=== PATIENT | female | born 1975 | race Caucasian/White ===

== ENCOUNTER 2019-04-05 08:03 | Day surgery (SDC) | payer OTHER ==
[2019-04-04 12:40] LABS: Absolute Lymphocytes (CBC) 2.5 K/uL (0.7-4.9); Basophils % 0.7 % (0-1.3); Hematocrit 41.8 % (36.0-45.0); Lymphocytes % 32.4 % (15.3-44.8); MPV 7.5 fL (7.6-11.3); Protein, Total 7.3 g/dL (6.4-8.2); RBC Red Blood Cell Count 4.71 M/uL (3.86-4.86)
--- NOTE | 2019-04-04 13:17 | EKG ---
Test Date: 2019-04-04 Test Time: 11:49:01 Data Security Consultant: MARIOLA MEASUREMENT RESULTS: Intervals: Rate: 66 RI: 168 QRSD: 78 QT: 400 QTc: 419 Hagan: P: 11 RI: 168 QRS: 25 T: 19 INTERPRETIVE STATEMENTS: Sinus rhythm with marked sinus arrhythmia Otherwise normal ECG No previous ECG available for comparison Electronically Signed On 04-04-19 13:16:10 COLD TYPE ARTIST by Layton Borden
--- OUTSIDE RECORDS SUMMARY | 2019-04-05 08:27 | XMS REPORT | Encounter Summary ---
:1975 Author Care Team Providers Name Role Phone Devin Quiroz MD Primary Care Provider [phone] Albaro Bell Referring Provider [phone] Nessa Erickson [employer] [phone] Reason for Visit Contraception; consult Instructions 1. Contraception using injectable contraceptive medication test, urine medroxyprogesterone 150 mg/mL intramuscular suspension 2. Acute sinusitis Augmentin 875 mg-125 mg tablet fluticasone propionate 50 mcg/actuation nasal spray,suspension 3. Recurrent urinary tract infection urinalysis, dipstick culture, urine Discussion Note Counseled on Depo Provera. Counseled on sinusitis, comfort measures, antibiotic, and decongestant medication. Explained urine appears clear today, but will await culture results for any treatment. At least 30 min. of face to face time, >50% spent on counseling and answering many medical questions regarding general health. Patient educational handouts: No information available. Plan of Care Reminders Provider Appointments Jhoan Schneider, 01/11/2019 10:30AM Lab Urinalysis, In-House Results Dipstick 10/12/2018 In-House Results Test, Urine 10/12/2018 Culture, [place] Urine 10/12/2018 [facility] ([facility]) Referral None recorded. Procedures None recorded. Surgeries None recorded. Imaging None recorded. Medications Name Start Date Augmentin 875 mg-125 mg tablet Take 1 tablet every 12 hours by oral route for 7 days. Sandra Back and Body 500 mg-32.5 mg tablet Take 2 tablets every day by oral route. fluticasone propionate 50 mcg/actuation nasal spray,suspension [place] 1 spray every day by intranasal route. medroxyprogesterone 150 mg/mL intramuscular suspension Inject 1 mL every 3 months by intramuscular route. pantoprazole 40 mg tablet,delayed release one daily Trileptal 300 mg tablet Take 1 tablet twice a day by oral route. Medications Administered Name Date medroxyprogesterone 150 mg/mL intramuscular suspension [id number]: 50:12 Inject 1 mL every 3 months by intramuscular route. Vitals Height Weight BMI Blood Pressure 5 ft 265.5 lbs 51.9 kg/m2 138/91 mm[Hg] Lab Results Date Name Specimen Result Interpretation Description Value Range Status Address 10/12/2018 Test negative In-House Test, Urine Results: For Internal Use Only Urinalysis, Leukocytes Negative In-House Dipstick Results: For Internal Use Only Nitrite negative In-House Results: For Internal Use Only Urobilinogen .2 In-House Results: For Internal Use Only Protein Negative In-House Results: For Internal Use Only Ph 5.5 In-House Results: For Internal Use Only Blood Small In-House Results: For Internal Use Only Specific 1.025 In-House [place] Results: For Internal Use Only Ketone Negative In-House Results: For Internal Use Only Bilirubin Negative In-House Results: For Internal Use Only Glucose Negative In-House Results: For Internal Use Only Appearance Slightly In-House Cloudy Results: For Internal Use Only Color Dark Yellow In-House Results: For Internal Use Only Allergies Code Code System Name Reaction Severity Status Onset 740444 RxNorm Bactrim Other Active 92485 RxNorm Vancomycin Other Active Problems Name Status Onset Date Source Acute Sinusitis Active 10/12/2018 Recurrent Urinary Tract Infection Active 10/12/2018 Dysuria Active 10/12/2018 Contraception Using Injectable Active 10/12/2018 Contraceptive Medication Tobacco Dependence Syndrome Active Encounter Chronic Rhinitis Active Encounter Posterior Rhinorrhea Active Encounter Chronic Bronchitis Active Encounter Dyspnea Active Encounter Cough Active Encounter Procedures Date Name Performed by 10/12/2016 Complete Repair of Rotator Cuff Information not available 02/06/2009 Cholecystectomy Information not available Vaccine List None recorded. Social History Tobacco Smoking Status Former Smoker (1 PPD) Past Encounters 10/12/2018 Contraception Using Injectable Contraceptive Medication; Acute Sinusitis; Recurrent Urinary Tract Infection Nessa Erickson, [facility]: [address], [address], [place] [address], Ph. [phone] History of Present Illness Note: 43 y.o. G0 presents for desire to continue DMPA for menstrual control, c/o sinus infection, and possible uti. She is due today for DMPA injection, she has severely heavy, painful periods when not on DMPA, and stops bleeding during use. C/o congestion, sneezing, severe headaches with pressure behind eyes, runny nose and fatigue. No improvement with excedrin migraine. Pt does have history of recurring kidney infections. UA: negative today. Last wwe this year. 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 ROS Reported By: Patient Constitutional: Constitutional: no fever, no significant weight gain, no significant weight loss, fatigue Skin: Skin: no abnormal moles, no rashes Eyes: Eyes: no irritation, no vision changes ENMT: ENMT: no hearing loss, no ear pain, no sore throat, no snoring, no mouth ulcers, nose/sinus problems, dry mouth Respiratory: Respiratory: no dyspnea / shortness of breath, no cough, no sputum production, no hemoptysis, no wheezing Cardiovascular: Cardiovascular: no chest pain, no palpitations, no orthopnea Gastrointestinal: Gastrointestinal: no heartburn, no dysphagia, no nausea, no vomiting, no abdominal pain, no bowel movement changes, no diarrhea, no constipation, no rectal bleeding Genitourinary: Genitourinary: no hematuria, no abnormal bleeding, no flank pain, no trouble urinating, no incontinence, no rash, no lesion, no discharge, no vaginal odor, no vaginal itching Endocrine: Menstrual: no menstrual problems, no PMDD symptoms. Menopausal: no menopausal symptoms. Sexual: no sexual problems Musculoskeletal: Musculoskeletal: no muscle aches, no muscle weakness, no arthralgias/joint pain, no back pain Neurological: Neurologic: no headaches, no dizziness, no LOC, no weakness, no numbness, no seizures Psychological: Psych: no depression, no alcoholism, no sleep disturbances Physical Exam Notes: Deferred
--- OUTSIDE RECORDS SUMMARY | 2019-04-05 08:27 | XMS REPORT | Encounter Summary ---
:1975 Author Care Team Providers Name Role Phone Devin Quiroz MD Primary Care Provider [phone] Albaro Bell Referring Provider [phone] Nessa Erickson [employer] [phone] Benjy Schneider [employer] [phone] Reason for Visit DMPA Instructions 1. Contraception using injectable contraceptive medication medroxyprogesterone 150 mg/mL intramuscular suspension Discussion Note: None recorded.Patient educational handouts: No information available. Plan of Care Reminders Provider Appointments Dmpa 04/12/2019 Benjy Schneider MD 10:30AM Lab None recorded. Referral None recorded. Procedures None recorded. Surgeries None recorded. Imaging None recorded. Medications Name Start Date amoxicillin 875 mg tablet amoxicillin 875 mg-potassium clavulanate 125 mg tablet Take 1 tablet every 12 hours by oral route for 7 days. Sandra Back and Body 500 mg-32.5 mg tablet Take 2 tablets every day by oral route. fluticasone propionate 50 mcg/actuation nasal spray,suspension [place] 1 spray every day by intranasal route. indomethacin 25 mg capsule medroxyprogesterone 150 mg/mL intramuscular suspension Inject 1 mL every 3 months by intramuscular route. naproxen 500 mg tablet pantoprazole 40 mg tablet,delayed release one daily Trileptal 300 mg tablet Take 1 tablet twice a day by oral route. Medications Administered Name Date medroxyprogesterone 150 mg/mL intramuscular suspension [id number]: 50:20 Inject 1 mL every 3 months by intramuscular route. Vitals Height Weight BMI Blood Pressure 5 ft 253.4 lbs 49.5 kg/m2 119/91 mm[Hg] Results Lab Results None recorded. Allergies Code Code System Name Reaction Severity Status Onset 686461 RxNorm Bactrim Other Active 67265 RxNorm Vancomycin Other Active Problems Name Status [...] Status Former Smoker (1 PPD) Past Encounters 01/11/2019 Contraception Using Injectable Contraceptive Medication Benjy Schneider MD: [address] [place] [address] [address], [place] [address], Ph. [phone] History of Present Illness None recorded. Review of Systems None recorded. Physical Exam None recorded.
[2019-04-05] MEDS ORDERED: Ringers Lactate 1,000 ML IV ONE ×2 (08:28→11:22)
[2019-04-05] MEDS ORDERED: propofoL 200 MG/20 ML VIAL IV ONE ×3 (09:23→12:11)
[2019-04-05] MEDS ORDERED: MIDAZOLAM HCL 2 MG/2 ML INJ ONE (09:23)
[2019-04-05] MEDS ORDERED: GLYCOPYRROLATE 0.2 MG/ML SYR ONE ×2 (09:23→09:24)
[2019-04-05] MEDS ORDERED: LIDOCAINE 2% MPF 5 ML VIAL ONE ×3 (09:24→12:22)
[2019-04-05] MEDS ORDERED: FENTANYL CITR 250 MCG/5 ML ONE (09:27)
[2019-04-05] MEDS ORDERED: ROCURONIUM 50 MG/5 ML VIAL IV ONE (09:27)
[2019-04-05] MEDS ORDERED: LIDOCAINE 1% W/EPI 1:100,000 MDV 20 ML VIAL ONE (09:29)
[2019-04-05] MEDS ORDERED: ONDANSETRON 4 MG/2 ML VIAL ONE ×2 (09:32→10:21)
[2019-04-05] MEDS ORDERED: dexAMETHasone 10 MG/ML VIAL ONE (09:33)
[2019-04-05] MEDS ORDERED: Mastisol Adhesive Liq ONE ×2 (12:13→12:45)
[2019-04-05] MEDS ORDERED: MORPHINE 10 MG/ML VIAL ONE (12:14)
[2019-04-05] MEDS ORDERED: SUCCINYLCHOLINE 20 MG/ML (10 ML) IV ONE (12:17)
[2019-04-05] MEDS ORDERED: KETAMINE HCL 500 MG/5 ML VIAL ONE (12:22)
[2019-04-05] MEDS: PROMETHAZINE INJ 25 MG/ML AMP ONE ×2 (13:14→14:12)
[2019-04-05] MEDS: HYDROMORPHONE HCL 1 MG/ML INJ ONE ×4 (13:14→14:00)
[2019-04-05 16:35] VITALS: TEMP 98.2
[2019-04-05 16:37] VITALS: BP 109/58; O2SAT 96
--- NOTE | 2019-04-06 16:12 | OP ---
Surgeon: Jasmyn Jolly MD Photography Professor: Rosanne Ghotra. Preoperative Diagnosis: Goiter with compressive symptoms including dysphagia. Postoperative Diagnosis: Goiter with compressive symptoms including dysphagia. Procedure: Total thyroidectomy. Complications: None. Specimens: Total thyroidectomy. Findings: Significantly enlarged thyroid with left greater than right goiter. Complications: None. Description Of Procedure: Ms. Elizabeth is 43-year-old who was brought to the operating room for surgic al treatment of her goiter. The risks, benefits, and alternatives to the surgery were discussed with the patient and her family prior to surgery. The patient was brought to the operating room. She wa s placed under general anesthesia via oral endotracheal tube. Her intubation was somewhat difficult due to her anatomy including obesity and she was successfully intubated using the glide scope. The s houlder roll was placed and the neck was extended with support of the head using towels and a donut s haped pillow. The neck was examined and the patient was noted to have a very prominent left goiter. The skin was injected with local anesthetic. A total of 4 mL of 1% lidocaine with epinephrine was u sed. The neck was then prepped and draped in a sterile fashion. A low collar incision was made thro ugh the skin and subcutaneous tissues until the platysma was identified. The platysmal flaps were el evated superiorly and inferiorly. The strap muscles were identified and were in the midlin e on the right aspect. There was a large anterior vein, which was clamped and cauterized. The strap muscles were then further superiorly and inferiorly for optimal exposure. The capsule of the thyroid was identified. The right strap muscles were carefully elevated off the capsule of the r ight thyroid. The inferior pole was easily dissected from surrounding tissues and dissection was car ried out along the lateral border in an inferior to superior direction. The superior vascular pedicl e was divided using ligature and the superior pole was mobilized. Tissue attachments in the area of Sierra ligament were noted and were carefully dissected in interest of avoiding damage to the recurren t laryngeal nerve. Moderate size venous tracts in this area were carefully dissected using Ashwin de la cruz and divided using the ligature. The area around Sierra ligament was finally successfully diss ected and the isthmus was elevated using Bovie electrocautery from the anterior tracheal wall. A sma ll, but wide pyramidal lobe was dissected from surrounding fatty tissues and mobilized. The right po rtion of the thyroid was then placed back into its anatomic location to create space in a dissection of the left side. The strap muscles were bluntly elevated off the left thyroid. This portion of the thyroid was noted to be significantly enlarged and much larger than the contralateral side. Blunt f jose dissection was used along the inferior, lateral, and superior aspects for mobilization. The Li gaSure was then used to divide areas of small vascular attachments along the inferior and lateral bor glenys. The superior pole was then mobilized by division of vascular attachments with the ligature and the thyroid was rotated medially. While dissecting along the deep aspect of the thyroid, the capsule of the thyroid was very thin and the capsule of the thyroid was dilated. A small amount of bleeding from the thyroid tissue ensued, but was controlled with brief packing of gauze. After removal, the remaining soft tissue attachments of the thyroid were carefully removed and dissected until the thyro id was free. Specimen was removed and carefully inspected. There was no gross evidence of parathyro id tissue noted with on the specimen. The surgical bed was thoroughly inspected and irrigated. Smal l areas of bleeding were cauterized. The parathyroid glands were not specifically visualized during the course of the procedure. A Valsalva was performed with water filling the surgical bed. There is no evidence of air leak or injury to the trachea, and no evidence of bleeding during the Valsalva. The surgical bed was thoroughly suctioned. A 10-Tristanian round MILADY drain was placed and withdrawn throu gh the left neck. A single suture was used to approximate the strap muscle. A small amount of bleed ing from this area occurred after placement due to the large anterior vein adjacent to the strap musc le. This bleeding was controlled with direct pressure. The incision was then closed in a layered fa shion using 4-0 Vicryl and 5-0 subcuticular Monocryl. During the initial stages of emergence, the pa tient coughed while still under moderate sedation with the endotracheal tube in place. At that time, an approximately 30 mL of blood was noted to escape into the MILADY drain. The anesthesiologist was ask ed to defer further stages of awakening and extubation, and the patient's neck was observed for appro ximately 5 to 8 minutes. There was mild continued blood extravasating into the MILADY bulb and decision was made to reopen the wound. The neck was re-prepped and draped with fresh sterile drapes. The MILADY drain was removed and the incision was opened by removal of sutures. There were small amount of clot s within the surgical bed and the entire surgical bed was very carefully examined. There was an area of moderate oozing noted on the left upper anterior tracheal wall, which was treated with cautery. An additional small area of oozing overlying the cricothyroid muscle was likewise cauterized. The ar ea of clots was carefully suctioned. The surgical bed was re-irrigated and carefully inspected and t here was no additional evidence of bleeding. A final Valsalva was administered to confirm hemostasis . The MILADY drain was replaced. The wound was then reclosed in a similar fashion with a single suture approximating the deep strap muscles in order to avoid additional injury to the vasculature. The john tysmal and deep fat subcutaneous fat layers were approximated with a 4-0 Vicryl and the skin was clos ed with a 5-0 subcuticular Monocryl. The MILADY drain was attached to suction and a minimal amount of bl oody fluid extravasated. The patient was then returned again to care of anesthesia for awakening, ex tubation in the operating room, which proceeded without difficulty. The patient was transported to [facility] recovery room without complication. Her postoperative parathyroid hormone level was 44, and the p atient was cleared for discharge to home with cautions to contact Dr. Jolly for any further concern s. JAGDISH/JANKI Voice ID: [id number] Report ID: [id number]
== END 2019-04-05 16:32 | disposition home or self-care (01) ==
LOC: OR 08:03
PROVIDERS: ATTEND Otolaryngology
PROC: 0GBJ0ZZ Excision of Thyroid Gland Isthmus, Open Approach (ICD-10-PCS; 2019-04-05)
PROC: 0GTK0ZZ Resection of Thyroid Gland, Open Approach (ICD-10-PCS; principal; 2019-04-05 09:15)
DX: E04.2 Nontoxic multinodular goiter (principal); R47.02 Dysphasia; K21.9 Gastro-esophageal reflux disease without esophagitis; Z88.2 Allergy status to sulfonamides; Z88.3 Allergy status to other anti-infective agents; Z80.9 Family history of malignant neoplasm, unspecified; Z83.3 Family history of diabetes mellitus; Z82.3 Family history of stroke; Z82.49 Family history of ischemic heart disease and other diseases of the circulatory system
CPT/HCPCS: 36415; 81025; 82310; 83970; 84155; 85025; 88305; 88307; 93005; J0330; J1100; J1170; J2250; J2405; J2550; J2704; J3010; J7120

== ENCOUNTER 2019-04-07 07:16 | Inpatient (IN) | payer OTHER ==
[2019-04-07] MEDS ORDERED: NA CHLORIDE 0.9% 0 ML ONE (07:42)
[2019-04-07] MEDS ORDERED: ONDANSETRON 4 MG/2 ML VIAL ONE (07:43)
[2019-04-07] MEDS ORDERED: CLINDAMYCIN 900MG/D5W 900 MG/50 ML IVPB IV ONE (07:43)
[2019-04-07] MEDS ORDERED: CEFAZOLIN/SWI 1gm 1 GM/10 ML SYR ONE ×2 (07:43→08:32)
[2019-04-07] MEDS ORDERED: MORPHINE 2 MG/ML SYR ONE (07:43)
[2019-04-07 08:05] LABS: Absolute Lymphocytes (CBC) 1.6 K/uL (0.7-4.9); Basophils % 0.6 % (0-1.3); Lymphocytes % 10.9 % (15.3-44.8); MPV 7.3 fL (7.6-11.3); RBC Red Blood Cell Count 4.46 M/uL (3.86-4.86)
[2019-04-07 08:18] LABS: Protime INR 1.17
--- NOTE | 2019-04-07 08:36 | RAD REPORT ---
EXAM DESCRIPTION: CT - Soft Tissue Neck W/Contr CLINICAL HISTORY: FEVER COMPARISON: No comparisonsNo comparisons TECHNIQUE All CT scans are performed using dose optimization technique as appropriate and may includ e automated exposure control or mA/KV adjustment according to patient size. FINDINGS: Recent postsurgical thyroidectomy changes are noted. Air is present in the fractional glan ds of the neck. A MILADY drain is in place within the thyroidectomy bed. Mild fluid is present in the divya gical bed however a well-formed abscess is not seen. Subcutaneous fat stranding is present along the anterior neck. Mild skin thickening is noted. Elsewhere, no intrinsic neck mass seen. Mildly prominent lymph nodes are present along the jugular ch ain bilaterally. IMPRESSION: Postsurgical changes of recent thyroidectomy noted with MILADY drain in place. Mild fluid de nsity is seen within the thyroid surgical bed however no well-formed discrete abscess is seen. There is mild skin thickening and subcutaneous fat stranding anterior neck present.
--- NOTE | 2019-04-07 09:01 | ER ---
Nurse's Notes [facility] Name: Briseida Elizabeth Age: 43 yrs Sex: Female : 1975 Arrival Date: 04/07/2019 Time: 07:17 Bed 5 Private MD: Diagnosis: Cellulitis and acute lymphangitis of neck-sp thyroidectomy, 04/04;Elevated white blood cell count Presentation: 04/06 07:33 Chief complaint: Patient states: had complete thyroidectomy on Monday with Dr. Jolly, iw her health care worker told her she is having too much drainage in her MILADY drain, she was running low grade fever yesterday up to 100.0. Coronavirus screen: The patient has NOT traveled to [place] in the past 14 days. Proceed with normal triage procedures. Ebola Screen: Patient negative for fever greater than or equal to 101.5 degrees Fahrenheit, and additional compatible Ebola Virus Disease symptoms Patient denies exposure to infectious person. Patient denies travel to an Ebola-affected area in the 21 days before illness onset. No symptoms or risks identified at this time. Initial Sepsis Screen: Does the patient meet any 2 criteria? HR > 90 bpm. Does the patient have a suspected source of infection?. Risk Assessment: Do you want to hurt yourself or someone else? Patient reports no desire to harm self or others. 07:33 Method Of Arrival: Wheelchair iw 07:33 Acuity: ZANDRA 3 iw CHILD CARE EDUCATION COORDINATOR: 07:41 LMP N/A - Depo-provera iw Historical: - Allergies: 07:41 Vancomycin; iw 07:41 Bactrim; iw - Home Meds: 07:41 Trileptal oral oral [Active]; Tramadol Oral [Active]; iw - PSHx: 07:41 Thyroidectomy; iw - Immunization history:: Adult Immunizations up to date. - Social history:: Smoking status: Patient denies any tobacco usage or history of. - Family history:: not pertinent. Screenin:45 Abuse screen: Denies threats or abuse. Nutritional screening: No deficits noted. em Tuberculosis screening: No symptoms or risk factors identified. Fall Risk None identified. Assessment: 07:50 General: Appears in no apparent distress. uncomfortable, Behavior is calm, cooperative, em Reports fever for 12-24 hours. Pain: Complains of pain in neck Pain does not radiate. Pain currently is 9 out of 10 on a pain scale. Pain began 2-3 days ago. Neuro: Level of Consciousness is awake, alert, obeys commands, Oriented to person, place, time, situation, Appropriate for age Reports dizziness. Cardiovascular: Capillary refill < 3 seconds Patient's skin is warm and dry. Respiratory: Airway is patent Respiratory effort is even, unlabored, Respiratory pattern is regular, symmetrical, Breath sounds are clear Denies shortness of breath labored breathing. GI: Patient currently denies nausea. Derm: surgical sight noted to left side of anterior neck, MILADY drain noted with serosanguineous fluid noted, redness noted to neck. Musculoskeletal: Capillary refill < 3 seconds, Range of motion: intact in all extremities. 08:50 Reassessment: Patient appears in no apparent distress at this time. Patient and/or em family updated on plan of care and expected duration. Pain level reassessed. Patient is alert, oriented x 3, equal unlabored respirations, skin warm/dry/pink. 09:01 Reassessment: Dr. Gómez at bedside. em 09:30 Reassessment: Patient appears in no apparent distress at this time. Patient and/or em family updated on plan of care and expected duration. Pain level reassessed. Patient is alert, oriented x 3, equal unlabored respirations, skin warm/dry/pink. 10:25 Reassessment: emptied 60 mL from MILADY drain, serosanguineous fluid noted, wound culture em sent to lab. 10:29 Reassessment: Patient appears in no apparent distress at this time. Patient and/or em family updated on plan of care and expected duration. Pain level reassessed. Patient is alert, oriented x 3, equal unlabored respirations, skin warm/dry/pink. 11:18 Reassessment: Dr. Gómez at bedside. em Vital Signs: 07:33 BP 124 / 73; Pulse 94; Resp 16 S; Temp 98.4; Pulse Ox 98% on R/A; Weight 116.12 kg; iw Height 5 ft. 0 in. (152.40 cm); Pain 9/10; 10:44 BP 116 / 75; Pulse 91; Resp 16; Temp 99.9(O); Pulse Ox 99% on R/A; Pain 8/10; em 07:33 Body Mass Index 50.00 (116.12 kg, 152.40 cm) iw ED Course: 07:17 Patient arrived in ED. rg4 07:20 Chandler Allen MD is Attending Physician. joqauin 07:28 Marcello Downey, RN is Primary Nurse. em 07:39 Triage completed. iw 07:42 XRAY Chest (1 view) In Process Unspecified. EDMS 07:42 Arm band placed on. iw 07:45 Patient has correct armband on for positive identification. Bed in low position. Call em light in reach. Side rails up X2. Adult w/ patient. Pulse ox on. NIBP on. 08:10 Initial lab(s) drawn, by me, sent to lab. Inserted saline lock: 20 gauge in right em antecubital area, using aseptic technique. Blood collected. 08:19 CT completed. Patient tolerated procedure well. Patient moved back from CT. mw3 08:20 CT Soft Tissue Neck W/contr In Process Unspecified. EDMS 08:59 Hiren Gómez DO is Hospitalizing Provider. joaquin 11:23 No provider procedures requiring assistance completed. Patient admitted, IV remains in em place. Administered Medications: 08:21 Not Given (Patient Refused): morphine 2 mg IVP once; (PAIN>8) RASS on ADMN: Combtv4, em Very Agttd3, Agttd2, Rstlss1, AlertClm0, Drwsy-1, LtSdtn-2, ModSdtn-3, DpSdtn-4, UnArsble-5 x2 08:21 Not Given (Patient Refused): Zofran (Ondansetron) 4 mg IVP once; over 2 minutes em 08:43 Drug: Ancef 2 grams Route: IVPB; Infused Over: 30 mins; Site: right antecubital; em 09:00 Follow up: Response: No adverse reaction; IV Status: Completed infusion; IV Intake: 20mlem 08:47 Drug: Zofran (Ondansetron) 4 mg Route: IVP; Site: right antecubital; em 09:33 Follow up: Response: No adverse reaction; Marked relief of symptoms; Nausea is decreasedem 09:23 Drug: Clindamycin 900 mg Route: IVPB; Infused Over: 30 mins; Site: right antecubital; em 10:00 Follow up: Response: No adverse reaction; IV Status: Completed infusion; IV Intake: 50mlem 09:24 Not Given (Patient Refused): NS 0.9% 1000 ml IV at 1 bolus Per protocol; 1000 mL bolus em 10:53 Drug: Tylenol 650 mg Route: PO; em 11:40 Follow up: Response: No adverse reaction em Intake: 09:00 IV: 20ml; Total: 20ml. em 10:00 IV: 50ml; Total: 70ml. em Outcome: 09:00 Decision to Hospitalize by Provider. joaquin 11:23 Admitted to Med/surg accompanied by tech, via wheelchair, room 210, with chart, Report em called to TIA Mar 11:23 Condition: good 11:23 Instructed on the need for admit, Demonstrated understanding of instructions. 11:41 Patient left the ED. em Signatures: Dispatcher [employer] Chandler Hines MD MD cha Munoz, Edgar RN Marge Méndez, Caridad Jimenez RN rg4 Hollie Aguirre mw3
--- NOTE | 2019-04-07 09:01 | EDPHYS ---
Physician Documentation [facility] Name: Briseida Elizabeth Age: 43 yrs Sex: Female : 1975 Arrival Date: 04/07/2019 Time: 07:17 Bed 5 Private MD: Chandler Walton HPI: 04/06 07:31 This 43 yrs old Female presents to ER via Unassigned with complaints of Post joaquin Surgical Bleeding, Post Surgical Pain. 07:31 The patient or guardian reports generalized weakness, swelling surgical site, bleeding. joaquin Onset: The symptoms/episode began/occurred 3 day(s) ago. Associated signs and symptoms: Pertinent positives:. 07:32 The patient presents with an abscess of the neck, The patient presents with cellulitis joaquin of the neck. Associated signs and symptoms: Pertinent positives: drainage, erythema, swelling. CYTOLOGY MANAGER: 07:41 LMP N/A - Depo-provera iw Historical: - Allergies: 07:41 Vancomycin; iw 07:41 Bactrim; iw - Home Meds: 07:41 Trileptal oral oral [Active]; Tramadol Oral [Active]; iw - PSHx: 07:41 Thyroidectomy; iw - Immunization history:: Adult Immunizations up to date. - Social history:: Smoking status: Patient denies any tobacco usage or history of. - Family history:: not pertinent. ROS: 07:32 Eyes: Negative for injury, pain, redness, and discharge, Cardiovascular: Negative for joaquin chest pain, palpitations, and edema, Respiratory: Negative for shortness of breath, cough, wheezing, and pleuritic chest pain, Abdomen/GI: Negative for abdominal pain, nausea, vomiting, diarrhea, and constipation, Back: Negative for injury and pain, : Negative for injury, bleeding, discharge, and swelling, MS/Extremity: Negative for injury and deformity, Skin: Negative for injury, rash, and discoloration, Neuro: Negative for headache, weakness, numbness, tingling, and seizure, Psych: Negative for depression, anxiety, suicide ideation, homicidal ideation, and hallucinations, Allergy/Immunology: Negative for hives, rash, and allergies, Endocrine: Negative for neck swelling, polydipsia, polyuria, polyphagia, and marked weight changes, Hematologic/Lymphatic: Negative for swollen nodes, abnormal bleeding, and unusual bruising. 07:32 Constitutional: Positive for chills, fever, malaise. 07:32 Neck: Positive for pain with movement, pain at rest, swelling, tenderness. 07:32 Skin: Positive for erythema, hematoma, swelling, of the neck. Exam: 07:32 Constitutional: This is a well developed, well nourished patient who is awake, alert, joaquin and in no acute distress. Head/Face: Normocephalic, atraumatic. Eyes: Pupils equal round and reactive to light, extra-ocular motions intact. Lids and lashes normal. Conjunctiva and sclera are non-icteric and not injected. Cornea within normal limits. Periorbital areas with no swelling, redness, or edema. ENT: Nares patent. No nasal discharge, no septal abnormalities noted. Tympanic membranes are normal and external auditory canals are clear. Oropharynx with no redness, swelling, or masses, exudates, or evidence of obstruction, uvula midline. Mucous membranes moist. Cardiovascular: Regular rate and rhythm with a normal S1 and S2. No gallops, murmurs, or rubs. Normal PMI, no JVD. No pulse deficits. Respiratory: Lungs have equal breath sounds bilaterally, clear to auscultation and percussion. No rales, rhonchi or wheezes noted. No increased work of breathing, no retractions or nasal flaring. Abdomen/GI: Soft, non-tender, with normal bowel sounds. No distension or tympany. No guarding or rebound. No evidence of tenderness throughout. Back: No spinal tenderness. No costovertebral tenderness. Full range of motion. Skin: Warm, dry with normal turgor. Normal color with no rashes, no lesions, and no evidence of cellulitis. MS/ Extremity: Pulses equal, no cyanosis. Neurovascular intact. Full, normal range of motion. Neuro: Awake and alert, GCS 15, oriented to person, place, time, and situation. Cranial nerves II-XII grossly intact. Motor strength 5/5 in all extremities. Sensory grossly intact. Cerebellar exam normal. Normal gait. Psych: Awake, alert, with orientation to person, place and time. Behavior, mood, and affect are within normal limits. 07:32 Neck: External neck: erythema, swelling, that is mild, that is moderate, of the right aspect of thyroid, left aspect of thyroid and suprasternal notch, Thyroid: appears normal, no acute changes, Trachea: is midline with no obvious abnormalities, ROM/movement: limited range of motion, that is mild. Vital Signs: 07:33 BP 124 / 73; Pulse 94; Resp 16 S; Temp 98.4; Pulse Ox 98% on R/A; Weight 116.12 kg; iw Height 5 ft. 0 in. (152.40 cm); Pain 9/10; 10:44 BP 116 / 75; Pulse 91; Resp 16; Temp 99.9(O); Pulse Ox 99% on R/A; Pain 8/10; em 07:33 Body Mass Index 50.00 (116.12 kg, 152.40 cm) iw MDM: 07:20 Patient medically screened. [facility] 07:35 Data reviewed: vital signs, nurses notes, lab test result(s), EKG, radiologic studies, [facility] CT scan, plain films. 04/06 07:28 Order name: Basic Metabolic Panel; Complete Time: 11:40 [facility] 04/06 07:28 Order name: CBC with Diff; Complete Time: 08:16 [facility] 04/06 07:28 Order name: LFT's; Complete Time: 11:40 [facility] 04/06 07:28 Order name: Magnesium; Complete Time: 11:40 [facility] 04/06 07:28 Order name: NT PRO-BNP; Complete Time: 11:40 [facility] 04/06 07:28 Order name: PT-INR; Complete Time: 08:48 [facility] 04/06 07:28 Order name: Troponin (emerg Dept Use Only); Complete Time: 11:40 [facility] 04/06 07:28 Order name: XRAY Chest (1 view) [facility] 04/06 07:28 Order name: Blood Culture Adult (2) [facility] 04/06 07:28 Order name: TSH; Complete Time: 11:40 [facility] 04/06 07:28 Order name: Procalcitonin; Complete Time: 09:27 [facility] 04/06 07:30 Order name: CT Soft Tissue Neck W/contr; Complete Time: 08:48 [facility] 04/06 10:28 Order name: Wound Culture 04/06 07:28 Order name: EKG; Complete Time: 07:30 [facility] 04/06 07:28 Order name: Cardiac monitoring; Complete Time: 08:22 [facility] 04/06 07:28 Order name: EKG - Nurse/Tech; Complete Time: 08:22 [facility] 04/06 07:28 Order name: IV Saline Lock; Complete Time: 08:22 [facility] 04/06 07:28 Order name: Labs collected and sent; Complete Time: 08:22 [facility] 04/06 07:28 Order name: O2 Per Protocol; Complete Time: 08:21 [facility] 04/06 07:28 Order name: O2 Sat Monitoring; Complete Time: 08:21 [facility] 04/06 07:30 Order name: NPO; Complete Time: 08:21 [facility] Administered Medications: 08:21 Not Given (Patient Refused): morphine 2 mg IVP once; (PAIN>8) RASS on ADMN: Combtv4, em Very Agttd3, Agttd2, Rstlss1, AlertClm0, Drwsy-1, LtSdtn-2, ModSdtn-3, DpSdtn-4, UnArsble-5 x2 08:21 Not Given (Patient Refused): Zofran (Ondansetron) 4 mg IVP once; over 2 minutes em 08:43 Drug: Ancef 2 grams Route: IVPB; Infused Over: 30 mins; Site: right antecubital; em 09:00 Follow up: Response: No adverse reaction; IV Status: Completed infusion; IV Intake: 20mlem 08:47 Drug: Zofran (Ondansetron) 4 mg Route: IVP; Site: right antecubital; em 09:33 Follow up: Response: No adverse reaction; Marked relief of symptoms; Nausea is decreasedem 09:23 Drug: Clindamycin 900 mg Route: IVPB; Infused Over: 30 mins; Site: right antecubital; em 10:00 Follow up: Response: No adverse reaction; IV Status: Completed infusion; IV Intake: 50mlem 09:24 Not Given (Patient Refused): NS 0.9% 1000 ml IV at 1 bolus Per protocol; 1000 mL bolus em 10:53 Drug: Tylenol 650 mg Route: PO; em 11:40 Follow up: Response: No adverse reaction em Disposition: 04/07/19 09:00 Hospitalization ordered by Hiren Gómez for Inpatient Admission. Preliminary diagnosis are Cellulitis and acute lymphangitis of neck - sp thyroidectomy, 04/04, Elevated white blood cell count. - Bed requested for Telemetry/MedSurg (Inpatient). - Status is Inpatient Admission. em - Condition is Fair. - Problem is new. - Symptoms have improved. Signatures: Dispatcher [employer] EDChandler Adams MD MD cha Munoz, Edgar, TIA RN Marge Becker RN RN iw Corrections: (The following items were deleted from the chart) 10:26 09:00 Hospitalization Ordered by Hiren Gómez DO for Inpatient Admission. Preliminary iw diagnosis is Cellulitis and acute lymphangitis of neck - sp thyroidectomy, 04/04; Elevated white blood cell count. Bed requested for Telemetry/MedSurg (Inpatient). Status is Inpatient Admission. Condition is Fair. Problem is new. Symptoms have improved. [facility] 11:41 10:26 04/07/2019 09:00 Hospitalization Ordered by Hiren Gómez DO for Inpatient em Admission. Preliminary diagnosis is Cellulitis and acute lymphangitis of neck - sp thyroidectomy, 04/04; Elevated white blood cell count. Bed requested for Telemetry/MedSurg (Inpatient). Status is Inpatient Admission. Condition is Fair. Problem is new. Symptoms have improved. iw
--- NOTE | 2019-04-07 10:41 | P.HP ---
Certification for Inpatient Patient admitted to: Inpatient With expected LOS: >2 Midnights Patient will require the following post-hospital care: None Practitioner: I am a practitioner with admitting privileges, knowledge of patient current condition, hospital course, and medical plan of care. Services: Services provided to patient in accordance with Admission requirements found in Title 42 Section 412.3 of the Code of Federal Regulations Patient History Date of Service: 04/07/19 Primary Care Provider: Rosalva Klein NP; ENT-Dr. Jolly Reason for admission: Neck pain History of Present Illness: 43-year-old female with history of seizure disorder. Patient also with history of goiter with compressive symptoms and dysphagia. Patient had total thyroidectomy due to goiter with compressive symptoms and dysphagia on Monday. This was an outpatient procedure. Pathology still pending. Patient reports that after the procedure they have to go back due to bleeding. She now has a drain. She was discharge on Monday. Since that time drain has been putting out serosanguineous fluid. She reported increasing neck pain, stiffness and erythema to the area. She reported fever. She came to the ER for further evaluation. In the ER patient was evaluated. White count 14.3, hemoglobin 13.1. Pro calcitonin negative. BMP pending at this time. CT scan showed postsurgical changes of recent thyroidectomy. MILADY tube in place. Mild fluid density seen within the thyroid surgical bed but no abscess identified. Patient was given medication for pain. She was admitted for further evaluation. When I saw the patient the ER, patient stable. Pain seems to be better controlled. Patient admitted for further evaluation and treatment. Allergies sulfamethoxazole [From Bactrim] Allergy (Verified 04/04/19 11:27) Anaphylaxis trimethoprim [From Bactrim] Allergy (Verified 04/04/19 11:27) Anaphylaxis vancomycin Allergy (Verified 04/04/19 11:27) Anaphylaxis Home medications list reviewed: Yes Home Medications: Aspirin/Acetaminophen/Caffeine [Excedrin Extra Strength Caplet] 2 tab PO PRN PRN 04/04/19 Sandra Back And Body 1 tab PO DAILY PRN 04/04/19 OXcarbazepine [Trileptal] 300 mg PO BID 04/04/19 Pantoprazole [Protonix Tab] 40 mg PO DAILY 04/04/19 - Past Medical/Surgical History Diabetic: No -: Seizure disorder -: Goiter status post total thyroidectomy -: Obesity -: GERD -: Total thyroidectomy -: Right shoulder cuff repair -: Cholecystectomy -: Right knee arthroscopic surgery Psychosocial/ Personal History: Patient is single. She has no children. - Family History Mother -: Cancer (kidney can) - Social History Smoking Status: Never smoker Alcohol use: No CD- Drugs: No Caffeine use: Yes Place of Residence: Home Review of Systems General: Fever Eyes: As per HPI ENT: Throat Pain, As per HPI Respiratory: Unremarkable Cardiovascular: Unremarkable Gastrointestinal: Unremarkable Genitourinary: Unremarkable Musculoskeletal: Unremarkable Integumentary: As per HPI Neurological: Unremarkable Lymphatics: Unremarkable Physical Examination - Physical Exam General: Alert, In no apparent distress, Oriented x3, Cooperative HEENT: Atraumatic, Normocephalic, Mucous membr. moist/pink Neck: Other (Postsurgical changes to the thyroid area. Patient not able to rotate neck. Mild erythema to the site of surgery. MILADY tube in place.) Respiratory: Clear to auscultation bilaterally, Normal air movement Cardiovascular: Normal pulses, Regular rate/rhythm Gastrointestinal: Normal bowel sounds, Soft and benign, Non-distended, No tenderness, No masses, No rebound, No guarding Musculoskeletal: No warmth, Other (Some tenderness to the thyroid surgical site. ) Integumentary: Other (Mild erythema, pain to surgical site.) Neurological: Normal speech, Normal strength at 5/5 x4 extr, Normal tone, Normal affect - Studies Laboratory Data (last 24 hrs) 04/07/19 07:50: PT 13.7 H, INR 1.17 04/07/19 07:50: WBC 14.3 H D, Hgb 13.1, Hct 40.0, Plt Count 334 Assessment and Plan - Plan Impression: Suspect seroma versus hematoma status post total thyroidectomy due to goiter with compressive symptoms/dysphagia Seizure disorder Plan: Suspect seroma versus hematoma status post total thyroidectomy due to goiter with compressive symptoms/dysphagia: Patient will be admitted for further evaluation and treatment. Will start IV fluids and antibiotic therapy. Obtain blood cultures. Case discussed with surgery-ENT. ENT will evaluate patient later today. Will keep the patient on clear liquid. Patient may require surgical evaluation. Will need to drain MILADY tube every shift. This will be placed to suction. Await further recommendations from ENT. Anticipate discharge in the next 24-48 hr. Seizure disorder: Continue medication. Discharge Plan: Home Plan to discharge in: 72 Hours - Advance Directives Does patient have a Living Will: No Does patient have a Durable POA for Healthcare: No - Code Status/Comfort Care Code Status Assessed: Yes (Patient is full code) Time Spent Managing Pts Care (In Minutes): 55
[2019-04-07] MEDS ORDERED: ACETAMINOPHEN 325 MG TABLET ONE (10:52)
[2019-04-07] MEDS ORDERED: SODIUM CHLORIDE 0.9% 10ML INJ IV PRN (11:32)
[2019-04-07] MEDS: NA CHLORIDE 0.9% 1,000 ML IV SCH ×2 (11:32→21:32)
[2019-04-07] MEDS ORDERED: MORPHINE 2 MG/ML SYR IV PRN (11:32)
[2019-04-07] MEDS ORDERED: TRAMADOL HCL 50 MG TAB PO PRN (11:32)
[2019-04-07] MEDS ORDERED: HYDROCODONE/APAP 7.5/325 MG TAB PO PRN (11:32)
[2019-04-07 11:34] LABS: ALT/SGPT 20 U/L (12-78); AST/SGOT 11 U/L (15-37); Albumin 3.2 g/dL (3.4-5.0); Alkaline Phosphatase 78 U/L (45-117); BUN Blood Urea Nitrogen 9 mg/dL (7-18); Bicarbonate 26 mmol/L (21-32); Bilirubin Direct 0.3 mg/dL (0-0.2); Bilirubin Total 1.1 mg/dL (0.2-1.0); Glucose Level 104 mg/dL (74-106); Magnesium 1.8 mg/dL (1.8-2.4); NT PRO-BNP 508 pg/mL (<125); Potassium 3.7 mmol/L (3.5-5.1); Protein, Total 6.9 g/dL (6.4-8.2); Sodium Level 139 mmol/L (136-145); Troponin (Emerg Dept Use Only) < 0.02 ng/mL (0.0-0.045)
[2019-04-07 12:00] VITALS: BMI 50.0
--- NOTE | 2019-04-07 12:10 | RAD REPORT ---
EXAM DESCRIPTION: RAD - Chest Single View - 04/07/2019 7:42 am CLINICAL HISTORY: COUGH Chest pain. COMPARISON: No comparisons FINDINGS: Portable technique limits examination quality. The lungs are grossly clear. The heart is normal in size. No displaced fractures. IMPRESSION: No acute intrathoracic process suspected.
[2019-04-07] MEDS: OXcarbazepine 150 MG TAB PO SCH (21:00)
[2019-04-07] MEDS ORDERED: CEFEPIME/SWI 1gm 10 ML IV SCH (21:00)
[2019-04-07] MEDS ORDERED: CEFEPIME 1 GM/VIAL IV SCH (21:00)
[2019-04-07] MEDS: ONDANSETRON 4 MG/2 ML VIAL IV PRN (21:39)
[2019-04-07] MEDS: CEFEPIME/SWI 1gm 10 ML IVP SCH (21:39)
[2019-04-07] MEDS: ACETAMINOPHEN 500 MG TAB PO PRN (21:49)
[2019-04-08 05:57] LABS: Absolute Lymphocytes (CBC) 1.4 K/uL (0.7-4.9); Basophils % 0.3 % (0-1.3); Hematocrit 39.6 % (36.0-45.0); Lymphocytes % 9.7 % (15.3-44.8); MPV 7.6 fL (7.6-11.3); RBC Red Blood Cell Count 4.48 M/uL (3.86-4.86)
[2019-04-08 06:12] LABS: Potassium 3.6 mmol/L (3.5-5.1)
[2019-04-08] MEDS: NA CHLORIDE 0.9% 1,000 ML IV SCH (07:32)
[2019-04-08] MEDS: ACETAMINOPHEN 500 MG TAB PO PRN (08:51)
[2019-04-08] MEDS: ONDANSETRON 4 MG/2 ML VIAL IV PRN ×2 (08:52→20:35)
[2019-04-08] MEDS: PANTOPRAZOLE 40 MG INJ IVP SCH (08:52)
[2019-04-08] MEDS: OXcarbazepine 150 MG TAB PO SCH ×2 (08:52→20:32)
[2019-04-08] MEDS: CEFEPIME/SWI 1gm 10 ML IVP SCH ×2 (08:52→20:33)
[2019-04-08 11:03] LABS: Specific Gravity >= 1.030 (1.005-1.030)
[2019-04-08] MEDS ORDERED: Ringers Lactate 1,000 ML IV ONE (11:13)
[2019-04-08] MEDS ORDERED: propofoL 200 MG/20 ML VIAL IV ONE ×2 (11:36→11:40)
[2019-04-08] MEDS ORDERED: LIDOCAINE 2% MPF 5 ML VIAL ONE (11:37)
[2019-04-08] MEDS ORDERED: FENTANYL CITR 100 MCG/2 ML ONE ×2 (11:37→12:26)
[2019-04-08] MEDS ORDERED: ONDANSETRON 4 MG/2 ML VIAL ONE (11:38)
[2019-04-08] MEDS ORDERED: ROCURONIUM 50 MG/5 ML VIAL IV ONE (11:38)
[2019-04-08] MEDS ORDERED: dexAMETHasone 10 MG/ML VIAL ONE (11:39)
[2019-04-08] MEDS ORDERED: SUCCINYLCHOLINE 20 MG/ML (10 ML) IV ONE (11:44)
[2019-04-08] MEDS ORDERED: LIDOCAINE 1% W/EPI 1:100,000 MDV 20 ML VIAL ONE (11:50)
[2019-04-08] MEDS ORDERED: MIDAZOLAM HCL 2 MG/2 ML INJ ONE (11:59)
[2019-04-08] MEDS: MEPERIDINE HCL 50 MG/ML ONE ×4 (13:02→13:19)
--- NOTE | 2019-04-08 15:02 | P.BOP ---
Preoperative diagnosis: surgical site infection Postoperative diagnosis: same Primary procedure: I&D surgical site (neck/thyroid) Needle Punch Machine Operator Helper: NONE,NONE Estimated blood loss: nil Specimen: none Findings: copious pus and serous fluid Anesthesia: General Complications: None Drain(s): Other (1/4 ike) Fluids & blood products: see anesthesia record Transferred to: Recovery Room Condition: Good
--- NOTE | 2019-04-08 15:36 | EKG ---
Test Date: 2019-04-07 Test Time: 08:06:36 Scratch Finisher: LORRIE MEASUREMENT RESULTS: Intervals: Rate: 91 ID: [id number] QRSD: 76 QT: 342 QTc: 420 [place]: P: 38 ID: [id number] QRS: 22 T: 31 INTERPRETIVE STATEMENTS: Normal sinus rhythm Normal ECG Compared to ECG 04/04/2019 11:49:01 Sinus arrhythmia no longer present Electronically Signed On 04-08-19 15:35:40 CHYRON OPERATOR by Mj Henry
--- NOTE | 2019-04-08 16:11 | P.PN ---
Subjective Date of Service: 04/08/19 Primary Care Provider: Rosalva Klein,RAINBOW TROUT FARM MANAGER; ENT-Dr. Jolly Chief Complaint: Neck pain Subjective: Other (Patient NPO for surgery today.) Physical Examination - Vital Signs Temperature: 97.8 F Blood Pressure: 129/65 Pulse: 89 Respirations: 16 Pulse Ox (%): 99 - Physical Exam General: Alert, In no apparent distress, Oriented x3, Cooperative HEENT: Atraumatic Neck: Other (Erythema still noted to the surgical side of the thyroid region.) Respiratory: Clear to auscultation bilaterally, Normal air movement Cardiovascular: Normal pulses, Regular rate/rhythm Gastrointestinal: Normal bowel sounds, Soft and benign, Non-distended Neurological: Normal speech, Normal strength at 5/5 x4 extr, Normal tone, Normal affect - Studies Medications List Reviewed: Yes Assessment & Plan Discharge Plan: Home Plan to discharge in: 48 Hours Physician Review Additional Text: Impression: Suspect cellulitis with seroma versus hematoma status post total thyroidectomy due to goiter with compressive symptoms/dysphagia now status post irrigation and debridement of surgical site Seizure disorder Plan: Suspect cellulitis with seroma versus hematoma status post total thyroidectomy due to goiter with compressive symptoms/dysphagia now status post irrigation and debridement of the surgical site: Continue IV fluids and antibiotic therapy. Case discussed with surgery today. Patient had irrigation and debridement of area. Patient likely with infection. Culture obtained. ENT recommends to continue antibiotic therapy for at least 24-48 hr. with improvement. Will continue to monitor closely. Will provide medication for pain. Continue with ENT recommendations. Seizure disorder: Continue medication. Time Spent Managing Pts Care (In Minutes): 55
[2019-04-09] MEDS: ACETAMINOPHEN 500 MG TAB PO PRN ×2 (03:54→10:09)
[2019-04-09 05:50] LABS: Magnesium 2.1 mg/dL (1.8-2.4); Potassium 3.7 mmol/L (3.5-5.1)
[2019-04-09 05:52] LABS: Basophils % 0.3 % (0-1.3); Hematocrit 38.6 % (36.0-45.0); Lymphocytes % 6.9 % (15.3-44.8); MPV 7.8 fL (7.6-11.3); RBC Red Blood Cell Count 4.42 M/uL (3.86-4.86)
[2019-04-09] MEDS ORDERED: POTASSIUM 25 MEQ EFFERV TAB PO ONE (06:08)
[2019-04-09 08:43] LABS: Blood Morphology Comment NOT SEEN (NOT SEEN); Platelet Estimate INCR; Urine White Blood Cell Casts OK
[2019-04-09] MEDS: PANTOPRAZOLE 40 MG INJ IVP SCH (09:00)
[2019-04-09] MEDS: OXcarbazepine 150 MG TAB PO SCH ×2 (09:00→20:34)
[2019-04-09] MEDS: CEFEPIME/SWI 1gm 10 ML IVP SCH ×2 (09:00→20:34)
[2019-04-09] MEDS: ONDANSETRON 4 MG/2 ML VIAL IV PRN ×2 (09:03→20:33)
--- NOTE | 2019-04-09 09:18 | OP ---
Date of Procedure: 04/08/2019 Surgeon: Jasmyn Jolly MD [place] Swordfish: None. Preoperative Diagnosis: Surgical site infection with abscess. Postoperative Diagnosis: Surgical site infection with abscess. Procedure: Incision and drainage of surgical site abscess. Indication For Procedure: Ms. Elizabeth underwent a total thyroidectomy on April 05, which w as remarkable only for a large goiter, greater on the left side. Her postoperative PTH was 44 and th e patient was doing well without signs or symptoms of hematoma and she was discharged to home. Appro ximately 48 hours following her procedure, she presented to the emergency room complaining of general ized illness, fevers with increased pain and redness of the neck. She was evaluated by the emergency room, underwent CT scanning that showed fluid collection, but given the postoperative state, it was difficult to assess for infection versus postoperative changes. She was having notable cellulitis of the skin and was admitted to the hospitalist service for medical management and evaluation. She was later evaluated by me on April 06 and compared to the ER's documentation, the redness of the neck w as significantly improving and a conservative course was elected. The following morning, on the day of surgery, she was noted to have persistent redness, which was immediately around her surgical incis ion, the MILADY drain output had changed from a serosanguineous to cloudy fluid and the patient had signi ficant edema and tenderness of the skin of the anterior neck. The decision was made to proceed with a formal opening, irrigation and debridement of the surgical wound. The risks, benefits, and alterna tives to the procedure were discussed with the patient, who agreed to proceed. Description Of Procedure In Detail: The patient was brought to the operating room. She was placed u nder general anesthesia via LMA. The neck was prepped with Betadine. The MILADY drain was removed prior to prepping and draping the neck. The thyroidectomy incision was opened by removal of sutures. The re was serous and mildly purulent fluid noted within the wound, primarily under the skin and subcutan eous tissue flap. The deeper sutures were then likewise removed and there was moderate purulence thr oughout the surgical bed including the paratracheal tissues. The wound was bluntly dissected using f ingertip to open any residual pockets of purulence. The wound was thoroughly irrigated using 1 L of sterile saline until all visible purulence was removed. A 1/4-inch [place] was fenestrated and place d within the deep and superficial tissue planes. The deep tissues were loosely approximated with 2 V icryl sutures and the incision was approximated using maryann to allow for skin closure, but adequate space for additional fluid evacuation if necessary. The [place] drain was secured through the left aspect of the incision using a nylon suture. Gauze dressing was applied around the Fredy drain and the gauze was secured using Kevin bandage elastic dressing. The [facility] and extubation in the operating room, which proceeded without difficulty. Complications: None. Disposition: This procedure represents an unplanned return to the operating room for a postoperative wound infection. Given the overall degree of infection including infection into the paratracheal sp kevin, I recommend the patient be continued on IV antibiotics for at least 48 additional hours due to h igh risk of morbidity should this infection dissect into the thoracic cavity along the paratracheal p nancy. The patient can resume diet as tolerated. No cultures were collected from the wound at the ti me of surgery since the patient had received multiple doses of antibiotic prior to surgical intervent ion. JAGDISH/JANKI Voice ID: [id number] Report ID: [id number]
--- NOTE | 2019-04-09 09:18 | P.PN ---
Subjective Date of Service: 04/09/19 Primary Care Provider: Rosalva Klein NP; ENT-Dr. Jolly Chief Complaint: Neck pain Subjective: Improving, Doing well Physical Examination - Vital Signs Temperature: 97.6 F Blood Pressure: 110/80 Pulse: 94 Respirations: 18 Pulse Ox (%): 93 - Physical Exam General: Alert Neck: Other (Bandage in place to the thyroid area. Patient feels better. Less pain noted.) Cardiovascular: Normal pulses, Regular rate/rhythm Gastrointestinal: Normal bowel sounds, Soft and benign Neurological: Normal speech, Normal strength at 5/5 x4 extr, Normal tone, Normal affect - Studies Medications List Reviewed: Yes Assessment & Plan Discharge Plan: Home Plan to discharge in: 24 Hours Physician Review Additional Text: Impression: Suspect cellulitis with seroma versus hematoma status post total thyroidectomy due to goiter with compressive symptoms/dysphagia now status post irrigation and debridement of surgical site Seizure disorder Plan: Suspect cellulitis with seroma versus hematoma status post total thyroidectomy due to goiter with compressive symptoms/dysphagia now status post irrigation and debridement of the surgical site: Continue IV antibiotic therapy. Pain seems to be better controlled. Patient feels better. Will discuss with ENT. Patient had irrigation and debridement of the area. There was a great deal of pus. Awaiting cultures. Anticipate possible discharge in the next 24 hr with clinical improvement. Seizure disorder: Continue medication. Time Spent Managing Pts Care (In Minutes): 55
[2019-04-10] MEDS ORDERED: BISMUTH SUBSALICYL 262MG/15ML-240 ML BTL PO SCH (03:00)
[2019-04-10] MEDS: MAGNES/ALUMIN/SIMET 30ML UCUP PO SCH ×4 (03:24→20:46)
[2019-04-10 05:29] LABS: Absolute Lymphocytes (CBC) 3.7 K/uL (0.7-4.9); Basophils % 0.5 % (0-1.3); Hematocrit 37.3 % (36.0-45.0); Lymphocytes % 28.1 % (15.3-44.8); MPV 7.8 fL (7.6-11.3); RBC Red Blood Cell Count 4.24 M/uL (3.86-4.86)
[2019-04-10 05:54] LABS: Magnesium 2.1 mg/dL (1.8-2.4); Potassium 3.7 mmol/L (3.5-5.1)
--- NOTE | 2019-04-10 07:24 | P.PN ---
Subjective Date of Service: 04/10/19 Primary Care Provider: Rosalva Klein NP; ENT-Dr. Jolly Chief Complaint: Neck pain Subjective: Improving, Doing well Physical Examination - Vital Signs Temperature: 97.1 F Blood Pressure: 103/59 Pulse: 89 Respirations: 18 Pulse Ox (%): 98 - Physical Exam General: Alert HEENT: Atraumatic Neck: Other (Bandage in place.) Cardiovascular: Normal pulses, Regular rate/rhythm Gastrointestinal: Normal bowel sounds, Soft and benign, Non-distended Neurological: Other (Better range of motion noted to the neck) - Studies Medications List Reviewed: Yes Assessment & Plan Discharge Plan: Home Plan to discharge in: 24 Hours Physician Review Additional Text: Impression: Suspect cellulitis with seroma versus hematoma status post total thyroidectomy due to goiter with compressive symptoms/dysphagia now status post irrigation and debridement of surgical site Seizure disorder Plan: Suspect cellulitis with seroma versus hematoma status post total thyroidectomy due to goiter with compressive symptoms/dysphagia now status post irrigation and debridement of the surgical site: Patient continues to improve. Pain well controlled. Better range of motion to the neck. Patient reports feeling better. Continue IV antibiotic therapy. Wound culture shows Gram negative rods. Anticipate likely discharge in the next 24 hr pending ENT recommendation. Seizure disorder: Continue medication. Time Spent Managing Pts Care (In Minutes): 55
[2019-04-10] MEDS: PANTOPRAZOLE 40 MG INJ IVP SCH (08:27)
[2019-04-10] MEDS: ONDANSETRON 4 MG/2 ML VIAL IV PRN ×2 (08:29→20:47)
[2019-04-10] MEDS: CEFEPIME/SWI 1gm 10 ML IVP SCH ×2 (08:29→20:47)
[2019-04-10] MEDS: OXcarbazepine 150 MG TAB PO SCH ×2 (08:29→20:47)
[2019-04-10] MEDS ORDERED: LEVOTHYROXINE SOD 0.1 MG TAB PO SCH (09:00)
[2019-04-10] MEDS ORDERED: POTASSIUM CL SA 10 MEQ TAB PO ONE (09:00)
[2019-04-10] MEDS ORDERED: LEVOTHYROXINE SOD 0.075 MG TAB PO SCH (09:00)
[2019-04-11 05:57] LABS: Potassium 4.1 mmol/L (3.5-5.1)
[2019-04-11] MEDS ORDERED: LEVOTHYROXINE SOD 0.075 MG TAB PO SCH (06:30)
[2019-04-11] MEDS ORDERED: LEVOTHYROXINE SOD 0.1 MG TAB PO SCH (06:30)
[2019-04-11] MEDS ORDERED: BAYER BACK AND BODY PO PRN (07:58)
[2019-04-11 08:32] VITALS: O2SAT 100
[2019-04-11] MEDS: OXcarbazepine 150 MG TAB PO SCH (08:37)
[2019-04-11] MEDS: MAGNES/ALUMIN/SIMET 30ML UCUP PO SCH ×2 (08:38→13:07)
[2019-04-11] MEDS ORDERED: CIPROFLOXACIN HCL 500 MG TAB PO SCH (09:00)
[2019-04-11] MEDS ORDERED: PANTOPRAZOLE 40MG TABLET PO SCH (09:00)
[2019-04-11] MEDS ORDERED: DOXYCYCLINE 100 MG CAP PO SCH (09:00)
[2019-04-11 11:21] VITALS: BP 114/75; TEMP 97.1
--- NOTE | 2019-04-11 12:18 | P.PN ---
Subjective Date of Service: 04/11/19 Primary Care Provider: Rosalva Klein,DIOGO; ENT-Dr. Jolly Chief Complaint: Neck pain Subjective: Improving Physical Examination - Vital Signs Temperature: 97.1 F Blood Pressure: 114/75 Pulse: 84 Respirations: 16 Pulse Ox (%): 100 - Physical Exam General: Alert HEENT: Atraumatic Respiratory: Clear to auscultation bilaterally, Normal air movement Cardiovascular: Normal pulses, Regular rate/rhythm Gastrointestinal: Normal bowel sounds, Soft and benign, Non-distended - Studies Medications List Reviewed: Yes Assessment & Plan Discharge Plan: Home Plan to discharge in: 24 Hours Physician Review Additional Text: Impression: Suspect cellulitis with seroma versus hematoma status post total thyroidectomy due to goiter with compressive symptoms/dysphagia now status post irrigation and debridement of surgical site sputum culture positive for methicillin Staph aureus Seizure disorder Plan: Suspect cellulitis with seroma versus hematoma status post total thyroidectomy due to goiter with compressive symptoms/dysphagia now status post irrigation and debridement of the surgical site sputum culture positive for methicillin- resistant Staph aureus: Patient continues to improve. Will discontinue IV antibiotic therapy. Will transition to Bactrim and doxycycline which was sensitive on sputum culture. Will discuss with ENT about possible discharge. Seizure disorder: Continue medication. Time Spent Managing Pts Care (In Minutes): 30
--- NOTE | 2019-04-11 14:00 | P.DS ---
Admission Date: 04/07/19 Discharge Date: 04/11/19 Primary Care Provider: Rosalva Kelin NP; ENT-Dr. Jolly Disposition: ROUTINE DISCHARGE Discharge Condition: GOOD Reason for Admission: Neck pain Consultations: ENT-Dr. Jolly Procedures: Surgery: Date of Procedure: 04/08/2019 Surgeon: Jasmyn Jolly MD Model And Pattern Supervisor: None. Preoperative Diagnosis: Surgical site infection with abscess. Postoperative Diagnosis: Surgical site infection with abscess. Procedure: Incision and drainage of surgical site abscess. Medical Problem List: Surgical site infection with abscess with recent post total thyroidectomy due to goiter with compressive symptoms/dysphagia now status post irrigation and debridement of surgical site sputum culture positive for methicillin Staph aureus Seizure disorder Brief History of Present Illness: 43-year-old female with history of seizure disorder. Patient also with history of goiter with compressive symptoms and dysphagia. Patient had total thyroidectomy due to goiter with compressive symptoms and dysphagia on Monday. This was an outpatient procedure. Pathology still pending. Patient reports that after the procedure they have to go back due to bleeding. She now has a drain. She was discharge on Monday. Since that time drain has been putting out serosanguineous fluid. She reported increasing neck pain, stiffness and erythema to the area. She reported fever. She came to the ER for further evaluation. In the ER patient was evaluated. White count 14.3, hemoglobin 13.1. Pro calcitonin negative. BMP pending at this time. CT scan showed postsurgical changes of recent thyroidectomy. MILADY tube in place. Mild fluid density seen within the thyroid surgical bed but no abscess identified. Patient was given medication for pain. She was admitted for further evaluation. When I saw the patient the ER, patient stable. Pain seems to be better controlled. Patient admitted for further evaluation and treatment. Hospital Course: Patient presented with cellulitis/seroma to the surgical site. Patient had recent total thyroidectomy due to goiter with compressive symptoms and dysphagia. Patient was admitted for further evaluation. ENT evaluated patient. Patient required surgery. ENT noted increase surgical site infection with abscess during her debridement. Patient tolerated procedure well. Cultures obtained showed methicillin-resistant Staph aureus. Patient has done well with antibiotic therapy and therapy. Patient has significant improve since debridement. At discharge she will continue with Cipro 500 mg twice daily and doxycycline 100 mg twice daily for 10 days. ENT desires patient to follow up on Monday to further address. Patient will continue with drain in place. Wound care will be continued as per ENT. Because of her total thyroidectomy patient will also be started on levothyroxine 175 mcg daily. Recommend to recheck tsh and free T4 in 4-6 weeks to monitor her progress. Patient with seizure disorder. At discharge she will continue with her medication. Vital Signs/Physical Exam: Temp Pulse Resp BP Pulse Ox 97.1 F 84 16 114/75 100 04/11/19 12:18 04/11/19 12:18 04/11/19 12:18 04/11/19 12:18 04/11/19 12:18 General: Alert, In no apparent distress, Oriented x3, Cooperative Neck: Other (Bandage in place) Respiratory: Clear to auscultation bilaterally, Normal air movement Cardiovascular: Normal pulses, Regular rate/rhythm Gastrointestinal: Normal bowel sounds, Soft and benign, Non-distended, No tenderness, No masses, No rebound, No guarding Musculoskeletal: No tenderness, No warmth Neurological: Normal speech, Normal strength at 5/5 x4 extr, Normal tone, Normal affect Laboratory Data at Discharge: WBC 13.2 K/uL (4.3-10.9) H 04/10/19 05:03 Hgb 12.4 g/dL (12.0-15.0) 04/10/19 05:03 Hct 37.3 % (36.0-45.0) 04/10/19 05:03 Plt Count 430 K/uL (152-406) H 04/10/19 05:03 PT 13.7 SECONDS (9.5-12.5) H 04/07/19 07:50 INR 1.17 04/07/19 07:50 Sodium 141 mmol/L (136-145) 04/11/19 05:19 Potassium 4.1 mmol/L (3.5-5.1) 04/11/19 05:19 BUN 10 mg/dL (7-18) 04/11/19 05:19 Creatinine 0.94 mg/dL (0.55-1.3) 04/11/19 05:19 Glucose 90 mg/dL (74-106) 04/11/19 05:19 Magnesium 2.1 mg/dL (1.8-2.4) 04/10/19 05:03 Total Bilirubin 1.1 mg/dL (0.2-1.0) H 04/07/19 07:50 AST 11 U/L (15-37) L 04/07/19 07:50 ALT 20 U/L (12-78) 04/07/19 07:50 Alkaline Phosphatase 78 U/L (45-117) 04/07/19 07:50 Home Medications: Sandra Back And Body 1 tab PO DAILY PRN 04/04/19 OXcarbazepine [Trileptal*] 300 mg PO BID 04/04/19 Pantoprazole [Protonix Tab*] 40 mg PO DAILY 04/04/19 Ciprofloxacin HCl [Cipro 500 MG Tablet] 500 mg PO BID #20 tab 04/11/19 Doxycycline Hyclate 100 mg PO BID #20 tablet 04/11/19 Levothyroxine [Synthroid*] 0.075 mg PO DAILYAC #30 tab 04/11/19 Levothyroxine [Synthroid*] 0.1 mg PO DAILYAC #30 tab 04/11/19 New Medications: Ciprofloxacin HCl [Cipro 500 MG Tablet] 500 mg PO BID #20 tab Doxycycline Hyclate 100 mg PO BID #20 tablet Levothyroxine [Synthroid*] 0.075 mg PO DAILYAC #30 tab Levothyroxine [Synthroid*] 0.1 mg PO DAILYAC #30 tab Patient Discharge Instructions: 1. Recommend follow up with PCP in 1 week to follow up this hospitalization. 2. Patient presented with cellulitis/seroma to the surgical site. Patient had recent total thyroidectomy due to goiter with compressive symptoms and dysphagia. Patient was admitted for further evaluation. ENT evaluated patient. Patient required surgery. ENT noted increase surgical site infection with abscess during her debridement. Patient tolerated procedure well. Cultures obtained showed methicillin-resistant Staph aureus. Patient has done well with antibiotic therapy and therapy. Patient has significant improve since debridement. At discharge she will continue with Cipro 500 mg twice daily and doxycycline 100 mg twice daily for 10 days. ENT desires patient to follow up on Monday to further address. Patient will continue with drain in place. Wound care will be continued as per ENT. Because of her total thyroidectomy patient will also be started on levothyroxine 175 mcg daily. Recommend to recheck tsh and free T4 in 4-6 weeks to monitor her progress. 3. Patient with seizure disorder. At discharge she will continue with her medication. Diet: AHA Activity: Ad paz Followup: Jasmyn Jolly MD [ACTIVE - CAN ADMIT] - Time spent managing pt's care (in minutes): 55
--- NOTE | 2019-04-12 18:09 | P.PN ---
Date of Service: 04/11/19 POD 6 TT, POD 3 I&D neck. Doing well. minimal pain. Eating and ambulating well. NAD. Incision intact with maryann. Lydia from Left aspect of incision with moderate purlence with massage of the neck. Cx: MRSA Discussed with patient and admitting MD. She is very motivated for discharge and given the amount of drainage, I would like to leave the ike in place. She can massage the neck to express fluid at home. She can bathe from the chest down but keep the neck/drain dry.
--- NOTE | 2019-04-12 20:45 | CON ---
Reason For Consultation: Neck infection. History Of Present Illness: Ms. Elizabeth is a 43-year-old white female with a history of seizure disor glenys. She underwent total thyroidectomy for goiter with compressive symptoms and dysphagia on . She was discharged the same day with a postoperative parathyroid hormone level of 44 with plan s to return to the office on Monday for drain removal. She did well on Monday, but on the morning of April 06, she developed increasing pain and redness with sensation of stiffness of the neck with fevers at home. She presented to the emergency room and was evaluated there by Dr. Alejandro flores performance of a CT scan, which was read as negative for abscess. She was admitted due to the cell ulitis by the hospitalist service. Past Medical History: Seizure disorder; borderline intellectual function goiter, status post total t hyroidectomy, now postop day 2; obesity; GERD; right shoulder cuff repair; cholecystectomy; right kne e arthroscopic surgery. Social History: Patient is a not a smoker. 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 Family History: Positive for kidney cancer in her mother. Review of Systems: Reviewed as per Dr. Gómez history and physical and is unchanged. Physical Examination: GENERAL: Patient appears alert. She is in no acute distress. She is oriented. She has no stridor or evidence of respiratory distress. HEENT: Normocephalic and atraumatic. Her mucous membranes are moist. External ears, nose are unrem arkable. Her oral cavity is unremarkable. NECK: She has an intact surgical incision with Steri-Strips in place. She has a MILADY drain, which on admission was noted to have serosanguineous fluid. There is moderate erythema around the incision wi th mild edema of the skin, it is appropriately tender to palpation. The drain has mild cloudy draina ge. Laboratory Studies: Leukocytosis at 14.3. Her procalcitonin is less than 0.05. TSH is 2.18. The p atient has mild hypocalcemia, but is asymptomatic. CT of the neck is reviewed. There is significant subcutaneous air around the surgical site. There is fat stranding of the skin. There is mild air t racking along the upper portion of the retropharyngeal area and along the trachea. It is difficult t o differentiate these findings from a routine postoperative state. There is no clear abscess formati on. Assessment: Based on my examination at approximately 6 p.m., the erythema seems significantly improv ed compared to her presentation in the emergency room based on this early response to antibiotic ther apy. The patient will be observed and re-evaluated for further signs of infection and immediate plan s for operative intervention are deferred at this time. JAGDISH/JANKI Voice ID: [id number] Report ID: [id number]
== END 2019-04-11 15:13 | disposition home or self-care (01) | DRG 863 ==
LOC: ER 07:16 → ERHOLD 10:04 → 2ND 11:18
PROVIDERS: ADMIT Family Medicine; ATTEND Family Medicine
PROC: 0J9500Z Drainage of Left Neck Subcutaneous Tissue and Fascia with Drainage Device, Open Approach (ICD-10-PCS; principal; 2019-04-08 12:00)
DX: T81.42XA Infection following a procedure, deep incisional surgical site, initial encounter (principal); Z68.43 Body mass index [BMI] 50.0-59.9, adult; B95.62 Methicillin resistant Staphylococcus aureus infection as the cause of diseases classified elsewhere; G40.909 Epilepsy, unspecified, not intractable, without status epilepticus; E89.0 Postprocedural hypothyroidism; K21.9 Gastro-esophageal reflux disease without esophagitis; E66.9 Obesity, unspecified; R13.10 Dysphagia, unspecified
CPT/HCPCS: 36415; 70491; 71045; 80048; 80076; 81025; 82310; 83735; 83880; 83970; 84145; 84155; 84443; 84484; 85025; 85610; 87040; 87070; 87077; 87186; 87205; 88305; 88307; 93005; 96365; 96367; 96375; 99285; C9113; J0330; J0690; J0692; J1100; J1170; J2175; J2250; J2270; J2405; J2550; J2704; J3010; J7030; J7120; Q9967

== ENCOUNTER 2019-04-18 20:13 | Emergency (ER) | payer OTHER ==
--- OUTSIDE RECORDS SUMMARY | 2019-04-18 20:16 | XMS REPORT | Encounter Summary ---
:1975 Author Care Team Providers Name Role Phone Devin Quiroz MD Primary Care Provider [phone] Albaro Bell Referring Provider [phone] Nessa Erickson Hemodialysis Lab Technician [phone] Benjy Wyatt Hemodialysis Lab Technician [phone] Reason for Visit DMPA Instructions 1. Contraception using injectable contraceptive medication medroxyprogesterone 150 mg/mL intramuscular suspension test, urine Discussion Note: None recorded.Patient educational handouts: No information available. Plan of Care Reminders Provider Appointments [facility] Nessa Dalton 07/15/2019 PATTIE Erickson 9:30AM Lab In-House Results Test, Urine 04/12/2019 Referral None recorded. Procedures None recorded. Surgeries None recorded. Imaging None recorded. Medications Name Start Date amoxicillin 875 mg tablet amoxicillin 875 mg-potassium clavulanate 125 mg tablet Take 1 tablet every 12 hours by oral route for 7 days. Sandra Back and Body 500 mg-32.5 mg tablet Take 2 tablets every day by oral route. fluticasone propionate 50 mcg/actuation nasal spray,suspension Crosby 1 spray every day by intranasal route. indomethacin 25 mg capsule medroxyprogesterone 150 mg/mL intramuscular suspension Inject 1 mL every 3 months by intramuscular route. naproxen 500 mg tablet pantoprazole 40 mg tablet,delayed release one daily tramadol 50 mg tablet Trileptal 300 mg tablet Take 1 tablet twice a day by oral route. Medications Administered Name Date medroxyprogesterone 150 mg/mL intramuscular suspension 1212-21-59N55: 30:17 Inject 1 mL every 3 months by intramuscular route. Vitals Height Weight BMI Blood Pressure 5 ft 250 lbs 48.8 kg/m2 126/103 mm[Hg] Results Lab Results Date Name Specimen Result Interpretation Description Value Range Status Address negative In-House Test, Urine Test Results: For Internal Use Only Allergies Code Code System Name Reaction Severity Status Onset 323081 RxNorm Bactrim Other Active 99183 RxNorm Vancomycin Other Active Problems Name Status [...] Status Former Smoker (1 PPD) Past Encounters 04/12/2019 Contraception Using Injectable Contraceptive Medication Benjy Schneider MD: [address] [place] [address] [address], [place] [address], Ph. [phone] History of Present Illness None recorded. Review of Systems None recorded. Physical Exam None recorded.
[2019-04-18 22:15] LABS: Absolute Lymphocytes (CBC) 3.2 K/uL (0.7-4.9); Basophils % 0.8 % (0-1.3); Hematocrit 40.6 % (36.0-45.0); Lymphocytes % 28.6 % (15.3-44.8); MPV 7.4 fL (7.6-11.3); RBC Red Blood Cell Count 4.64 M/uL (3.86-4.86)
[2019-04-18 22:35] LABS: Albumin 3.4 g/dL (3.4-5.0); Bilirubin Total 0.3 mg/dL (0.2-1.0); Potassium 3.6 mmol/L (3.5-5.1); Protein, Total 7.2 g/dL (6.4-8.2); Thyroid Stimulating Hormone 1.05 uIU/mL (0.360-3.740)
[2019-04-18 22:39] LABS: Urine Blood TRACE (NEG); Urine Glucose NEGATIVE (NEG); Urine Protein NEGATIVE (NEG); Urine Specific Gravity >1.030 (1.005-1.030)
--- NOTE | 2019-04-18 23:07 | ER ---
Nurse's Notes [facility] Name: Briseida Elizabeth Age: 43 yrs Sex: Female : 1975 Arrival Date: 04/18/2019 Time: 20:16 Bed 27 Private MD: Diagnosis: Encounter for other postprocedural aftercare-5.1x 2.4cmseroma Presentation: 04/17 20:19 Chief complaint: Patient states: "I had a total thyroid removal then 2 days later I was aj1 admitted to the hospital here on Monday, I had a severe staph infection, Dr. Jolly had to reopen me up and clear everything out. I was release a week ago today. This past Monday she took the tube out and took out the maryann and everything was going fine, and then today after I ate dinner I looked in the mirror and I saw swelling on my neck and I'm feeling pressure when I swallow like before I had the surgery. I'm not running fever or anything. Coronavirus screen: The patient has NOT traveled to a country currently being monitored by the CDC within the last 14 days. Ebola Screen: Patient denies travel to an Ebola-affected area in the 21 days before illness onset. Initial Sepsis Screen: Does the patient meet any 2 criteria? HR > 90 bpm. No. Patient's initial sepsis screen is negative. Does the patient have a suspected source of infection? Yes: Skin breakdown/wound. Risk Assessment: Do you want to hurt yourself or someone else? Patient reports no desire to harm self or others. 20:19 Method Of Arrival: Ambulatory aj1 20:19 Acuity: ZANDRA 3 aj1 22:11 Onset of symptoms was April 18, 2019 at 20:00. Triage Assessment: 20:23 General: Appears in no apparent distress. comfortable, Behavior is calm, cooperative, aj1 appropriate for age. Pain: Denies pain. Neuro: Level of Consciousness is awake, alert, obeys commands. Cardiovascular: Patient's skin is warm and dry. Respiratory: Airway is patent Respiratory effort is even, unlabored, Respiratory pattern is regular, symmetrical. 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 - Social history:: Smoking status: Patient/guardian denies using tobacco. - Family history:: not pertinent. Screenin:00 Abuse screen: Denies threats or abuse. Nutritional screening: No deficits noted. vc Tuberculosis screening: No symptoms or risk factors identified. Fall Risk None identified. Assessment: 21:00 General: Appears in no apparent distress. uncomfortable, Behavior is calm, cooperative, vc flat. Pain: Denies pain. Neuro: Level of Consciousness is awake, alert, obeys commands, Oriented to person, place, time, situation. Cardiovascular: Patient's skin is warm and dry. Respiratory: Airway is patent Respiratory effort is even, unlabored, Respiratory pattern is regular, symmetrical. GI: No signs and/or symptoms were reported involving the gastrointestinal system. : No signs and/or symptoms were reported regarding the genitourinary system. EENT: Throat neck inflammed. Derm: Skin temperature is warm. Musculoskeletal: Circulation, motion, and sensation intact. Range of motion: intact in all extremities. 22:00 Reassessment: Patient and/or family updated on plan of care and expected duration. Pain vc level reassessed. Patient is alert, oriented x 3, equal unlabored respirations, skin warm/dry/pink. 23:18 Reassessment: Patient and/or family updated on plan of care and expected duration. Pain vc level reassessed. Patient is alert, oriented x 3, equal unlabored respirations, skin warm/dry/pink. Patient denies pain at this time. Vital Signs: 20:23 BP 124 / 79; Pulse 105; Resp 20; Temp 97.9; Pulse Ox 100% ; Weight 116.12 kg (R); aj1 ED Course: 20:16 Patient arrived in ED. jg7 20:22 Triage completed. aj1 20:23 Arm band placed on Patient placed in waiting room, Patient notified of wait time. aj1 20:49 Nikki Cristina RN is Primary Nurse. vc 21:06 Chandler Allen MD is Attending Physician. joaquin 22:12 Patient has correct armband on for positive identification. vc 22:21 Thyroid Para Parotid Gland In Process Unspecified. EDMS 23:04 Jasmyn Jolly MD is Referral Physician. joaquin 23:18 No provider procedures requiring assistance completed. IV discontinued, intact, vc bleeding controlled, No redness/swelling at site. Pressure dressing applied. Administered Medications: 22:34 Not Given (Patient Refused): NS 0.9% 1000 ml IV at 1 bolus Per protocol; 1000 mL bolus vc Outcome: 23:06 Discharge ordered by . joaquin 23:18 Discharged to home ambulatory. vc 23:18 Condition: good 23:18 Discharge instructions given to patient, Instructed on discharge instructions, follow up and referral plans. Demonstrated understanding of instructions, follow-up care. 23:19 Patient left the ED. vc Signatures: Dispatcher [employer] EDSD Mary Hwoard, TIA RN aj1 Chandler Allen MD MD cha Gutierrez, Jessica jg7 Nikki Cristina RN RN vc
--- NOTE | 2019-04-18 23:08 | EDPHYS ---
Physician Documentation [facility] Name: Briseida Elizabeth Age: 43 yrs Sex: Female : 1975 Arrival Date: 04/18/2019 Time: 20:16 Bed 27 Private MD: PADMAJA Physician Chandler Allen HPI: 04/17 21:33 This 43 yrs old Female presents to ER via Ambulatory with complaints of Post joaquin Op Problem. 21:33 The patient's problem is reported as swelling in post op site. Onset: The joaquin symptoms/episode began/occurred 1 day(s) ago. Duration: The episode is continuous. The symptoms are alleviated by nothing. The symptoms are aggravated by nothing. Associated signs and symptoms: The patient has no apparent associated signs or symptoms. The patient has not experienced similar symptoms in the past. 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 - Social history:: Smoking status: Patient/guardian denies using tobacco. - Family history:: not pertinent. ROS: 21:33 Constitutional: Negative for fever, chills, and weight loss, Eyes: Negative for injury, joaquin pain, redness, and discharge, ENT: Negative for injury, pain, and discharge, Cardiovascular: Negative for chest pain, palpitations, and edema, Respiratory: Negative for shortness of breath, cough, wheezing, and pleuritic chest pain, Abdomen/GI: Negative for abdominal pain, nausea, vomiting, diarrhea, and constipation, Back: Negative for injury and pain, : Negative for injury, bleeding, discharge, and swelling, MS/Extremity: Negative for injury and deformity, Skin: Negative for injury, rash, and discoloration, Neuro: Negative for headache, weakness, numbness, tingling, and seizure, Psych: Negative for depression, anxiety, suicide ideation, homicidal ideation, and hallucinations, Allergy/Immunology: Negative for hives, rash, and allergies, Endocrine: Negative for neck swelling, polydipsia, polyuria, polyphagia, and marked weight changes, Hematologic/Lymphatic: Negative for swollen nodes, abnormal bleeding, and unusual bruising. 21:33 Neck: Positive for swelling. Exam: 21:33 Constitutional: This is a well developed, well nourished patient who is awake, alert, joaquin and in no acute distress. Head/Face: Normocephalic, atraumatic. Eyes: Pupils equal round and reactive to light, extra-ocular motions intact. Lids and lashes normal. Conjunctiva and sclera are non-icteric and not injected. Cornea within normal limits. Periorbital areas with no swelling, redness, or edema. ENT: Nares patent. No nasal discharge, no septal abnormalities noted. Tympanic membranes are normal and external auditory canals are clear. Oropharynx with no redness, swelling, or masses, exudates, or evidence of obstruction, uvula midline. Mucous membranes moist. Chest/axilla: Normal chest wall appearance and motion. Nontender with no deformity. No lesions are appreciated. Cardiovascular: Regular rate and rhythm with a normal S1 and S2. No gallops, murmurs, or rubs. Normal PMI, no JVD. No pulse deficits. Respiratory: Lungs have equal breath sounds bilaterally, clear to auscultation and percussion. No rales, rhonchi or wheezes noted. No increased work of breathing, no retractions or nasal flaring. Abdomen/GI: Soft, non-tender, with normal bowel sounds. No distension or tympany. No guarding or rebound. No evidence of tenderness throughout. Back: No spinal tenderness. No costovertebral tenderness. Full range of motion. Skin: Warm, dry with normal turgor. Normal color with no rashes, no lesions, and no evidence of cellulitis. MS/ Extremity: Pulses equal, no cyanosis. Neurovascular intact. Full, normal range of motion. Neuro: Awake and alert, GCS 15, oriented to person, place, time, and situation. Cranial nerves II-XII grossly intact. Motor strength 5/5 in all extremities. Sensory grossly intact. Cerebellar exam normal. Normal gait. Psych: Awake, alert, with orientation to person, place and time. Behavior, mood, and affect are within normal limits. 21:33 Neck: External neck: swelling, that is mild, of the right aspect of thyroid and left aspect of thyroid. 23:03 CT study not indicated or reported. Reason for not performing CT: not done [facility] Vital Signs: 20:23 BP 124 / 79; Pulse 105; Resp 20; Temp 97.9; Pulse Ox 100% ; Weight 116.12 kg (R); aj1 MDM: 21:06 Patient medically screened. [facility] 21:36 Data reviewed: vital signs, nurses notes, lab test result(s), radiologic studies, [facility] ultrasound. 03 21:33 Order name: CBC with Diff; Complete Time: 22:58 [facility] 04/17 21:33 Order name: Comprehensive Metabolic Panel; Complete Time: 22:58 [facility] 04/17 21:33 Order name: TSH; Complete Time: 22:58 [facility] 04/17 21:58 Order name: Thyroid Para Parotid Gland [facility] 04/17 22:16 Order name: Urine Dipstick--Ancillary (enter results); Complete Time: 22:58 [facility] 04/17 21:36 Order name: Urine Dipstick-Ancillary (obtain specimen); Complete Time: 22:00 [facility] Administered Medications: 22:34 Not Given (Patient Refused): NS 0.9% 1000 ml IV at 1 bolus Per protocol; 1000 mL bolus vc Disposition: 04/18/19 23:06 Discharged to Home. Impression: Encounter for other postprocedural aftercare - 5.1x 2.4cmseroma. - Condition is Stable. - Discharge Instructions: Hematoma, Hematoma, [id number], Seroma. - Medication Reconciliation Form, Thank You Letter, Antibiotic Education, Prescription Opioid Use form. - Follow up: Jasmyn Jolly MD; When: Tomorrow; Reason: Recheck today's complaints, Continuance of care, Re-evaluation by your physician. - Problem is new. - Symptoms have improved. Signatures: Dispatcher [employer] EDMary Redding RN RN aj1 Chandler Allen MD MD cha Calcote, Vanessa, RN RN vc Corrections: (The following items were deleted from the chart) 23:19 23:06 04/18/2019 23:06 Discharged to Home. Impression: Encounter for other vc postprocedural aftercare - 5.1x 2.4cmseroma. Condition is Stable. Forms are Medication Reconciliation Form, Thank You Letter, Antibiotic Education, Prescription Opioid Use. Follow up: Jasmyn Jolly; When: Tomorrow; Reason: Recheck today's complaints, Continuance of care, Re-evaluation by your physician. Problem is new. Symptoms have improved. joaquin
[2019-04-19 00:17] VITALS: BP 124/79; TEMP 97.9; O2SAT 100
--- NOTE | 2019-04-19 10:57 | RAD REPORT ---
EXAM DESCRIPTION: US - Thyroid Para Parotid Gland - 04/18/2019 10:21 pm CLINICAL HISTORY: Post thyroid surgery COMPARISON: None. TECHNIQUE: Kan-scale and color Doppler images of the neck were obtained. FINDINGS: The patient is reportedly post thyroidectomy. There is a septated anechoic collection in t he thyroid bed which measures 5.1 x 2.4 cm and contains internal debris. No abnormal color Doppler bl ood flow is seen within or surrounding the fluid collection. IMPRESSION: 5 cm septated fluid collection in the thyroid bed containing internal debris. This is no nspecific but may represent postoperative seroma or hematoma. Electronically signed by: Phani Ambrocio MD 04/18/2019 10:51 PM CDT Due to temporary technical issues with the PACS/Fluency reporting system, reports are being signed by the in house radiologist as a courtesy to ensure prompt reporting. The interpreting radiologist is f ully responsible for the content of the report.
== END 2019-04-18 23:19 | disposition home or self-care (01) ==
LOC: ER 20:13
DX: Z48.89 Encounter for other specified surgical aftercare (principal); G40.909 Epilepsy, unspecified, not intractable, without status epilepticus; Z88.1 Allergy status to other antibiotic agents; Z88.3 Allergy status to other anti-infective agents
CPT/HCPCS: 36415; 76536; 80053; 81003; 84443; 85025; 99283